=== PATIENT | male | born 1990 | race Caucasian/White ===

== ENCOUNTER 2017-03-17 16:07 | Emergency (ER) | payer SELFPAY ==
[2017-03-17] MEDS ORDERED: Lidocaine 1% with EPINEPHrine 1:100,000 20 ML MDV INJECT ONE (16:28)
--- NOTE | 2017-03-17 16:52 | EDM.PDOC ---
ED HPI GENERAL MEDICAL PROBLEM - General Chief Complaint: Laceration Stated Complaint: CUT ON LT ARM Time Seen by Provider: 03/17/17 16:52 Source of Information: Reports: Patient History Limitations: Reports: No Limitations - History of Present Illness INITIAL COMMENTS - FREE TEXT/NARRATIVE: HISTORY AND PHYSICAL: History of present illness: [Patient comes to the emergency room complaining of a laceration to his left inner forearm. Occurred just prior to arrival in the ER. Patient was using a dirty cook box filler when the knife slipped cutting into his inner forearm. Bled quite a bit at the time it occurred but has slowed down considerably upon presentation to the ER. Tetanus is up-to-date. He has no other complaints or concerns at this time.] Review of systems: As per history of present illness and below otherwise all systems reviewed and negative. Past medical history: As per history of present illness and as reviewed below otherwise noncontributory. Surgical history: As per history of present illness and as reviewed below otherwise noncontributory. Social history: No reported history of drug or alcohol abuse. Family history: As per history of present illness and as reviewed below otherwise noncontributory. Physical exam: HEENT: Atraumatic, normocephalic., pupils reactive, negative for conjunctival pallor or scleral icterus, mucous membranes moist, throat clear, neck supple, nontender, trachea midline. Lungs: Clear to auscultation, breath sounds equal bilaterally, chest nontender. Heart: S1S2, regular, negative for clicks, rubs, or JVD. Abdomen: Soft, nondistended, nontender. Negative for masses or hepatosplenomegaly. Negative for costovertebral tenderness. Pelvis: Stable nontender. Genitourinary: Deferred. Rectal: Deferred. Extremities: 2 cm linear laceration to medial left forearm. Subcutaneous tissue is protruding from the wound. Is otherwise atraumatic. Neurovascular unremarkable. Neuro: Awake, alert, oriented. Motor and sensory unremarkable throughout. Exam nonfocal. Impression: [Laceration left medial forearm] Plan: [Return to ER in 7 days to have sutures removed. Tylenol or ibuprofen as needed for discomfort. He is in agreement with today's plan.] Definitive disposition and diagnosis as appropriate pending reevaluation and review of above. - Related Data Allergies Allergy/AdvReac Type Severity Reaction Status Date / Time No Known Allergies Allergy Verified 03/17/17 16:15 Home Meds: Home Meds . [No Known Home Meds] 03/17/17 [History] Past Medical History - Past Health History Medical/Surgical History: Denies Medical/Surgical History Social & Family History - Family History Family Medical History: Noncontributory - Tobacco Use Smoking Status *Q: Never Smoker Second Hand Smoke Exposure: No - Caffeine Use Caffeine Use: Reports: Coffee, Energy Drinks - Alcohol Use Days Per Week of Alcohol Use: 2 Number of Drinks Per Day: 3 Total Drinks Per Week: 6 - Recreational Drug Use Recreational Drug Use: Yes Drug Use in Last 12 Months: Yes Recreational Drug Type: Reports: Marijuana/Hashish Recreational Drug Use Frequency: Daily ED ROS GENERAL - Review of Systems Review Of Systems: ROS reveals no pertinent complaints other than HPI. ED EXAM, SKIN/RASH Exam: See Below ED SKIN PROCEDURES - Laceration/Wound Repair Left Medial Arm Lac/Wound length In cm: 2 Appearance: Subcutaneous, Clean Distal NVT: Neuro & Vascular Intact Anesthetic Type: Local Local Anesthesia - Lidocaine (Xylocaine): 1% with EPI Skin Prep: Chlorhexidine (Hibiciens), Saline Exploration/Debridement/Repair: Wound Explored, In a Bloodless Field, No Foreign Material Found Closed with: Sutures Suture Size: 4-0 # of Sutures: 5 Suture Type: Nylon Sterile Dressing Applied: Nurse Tetanus Status Addressed: Yes Complications: No Course - Vital Signs Last Recorded V/S: Last Vital Signs Temp 97.5 F 03/17/17 16:17 Pulse 62 03/17/17 17:21 Resp 14 03/17/17 17:21 BP 112/76 03/17/17 17:21 Pulse Ox 98 03/17/17 17:21 - Orders/Labs/Meds Meds: Medications Discontinued Medications Generic Name Dose Route Start Last Admin Trade Name Luis PRN Reason Stop Dose Admin Lidocaine/Epinephrine 20 ml 03/17/17 16:28 Xylocaine 1% With Epinephrine 1:100,000 INJECT 03/17/17 16:29 ONETIME ONE Departure - Departure Time of Disposition: 17:11 Disposition: Home, Self-Care 01 Condition: Good Clinical Impression: Laceration - Discharge Information Instructions: Laceration Care, Adult Referrals: PCP,None [Primary Care Provider] - Forms: ED Department Discharge Additional Instructions: The following information is given to patients seen in the emergency department who are being discharged to home. This information is to outline your options for follow-up care. We provide all patients seen in our emergency department with a follow-up referral. The need for follow-up, as well as the timing and circumstances, are variable depending upon the specifics of your emergency department visit. If you don't have a primary care physician on staff, we will provide you with a referral. We always advise you to contact your personal physician following an emergency department visit to inform them of the circumstance of the visit and for follow-up with them and/or the need for any referrals to a consulting specialist. The emergency department will also refer you to a specialist when appropriate. This referral assures that you have the opportunity for follow-up care with a specialist. All of these measure are taken in an effort to provide you with optimal care, which includes your follow-up. Under all circumstances we always encourage you to contact your private physician who remains a resource for coordinating your care. When calling for follow-up care, please make the office aware that this follow-up is from your recent emergency room visit. If for any reason you are refused follow-up, please contact the [facility] emergency department at and asked to speak to the emergency department charge nurse. [facility] [address] [place] [id number] Return to ER in 7 days to have sutures removed and as needed as discussed. Take antibiotics as prescribed.
[2017-03-17 17:22] VITALS: BP 112/76
== END 2017-03-17 17:20 | disposition home or self-care (01) ==
LOC: MW.ED 16:07
DX: S51.812A Laceration without foreign body of left forearm, initial encounter (principal); W26.0XXA Contact with knife, initial encounter
CPT/HCPCS: 12002; 99282

== ENCOUNTER 2017-03-25 09:04 | Emergency (ER) | payer SELFPAY ==
[2017-03-25 09:21] VITALS: BP 126/79
== END 2017-03-25 09:15 | disposition left against medical advice (07) ==
LOC: MW.ED 09:04
DX: Z53.21 Procedure and treatment not carried out due to patient leaving prior to being seen by health care provider (principal)
CPT/HCPCS: 99281